=== PATIENT | female | born 1975 | race Caucasian/White ===

== ENCOUNTER 2019-11-05 08:52 | Outpatient (CLI) | payer BC, SELFPAY ==
--- NOTE | 2019-11-05 09:10 | XR_ITS ---
WS: [id number] LATERAL CERVICAL SPINE: 3 view. Lateral radiographs are performed in upright neutral, flexion and extension to the patient's toleranc e. HISTORY: Neck pain COMPARISON: None available. Mild straightening of the normal cervical lordosis. Small osteophytes extend from C3 to C7. Advanced degenerative disc disease at C6-7. There is slight retrolisthesis of C2 and C3. Normal alignment with flexion and 2 mm retrolisthesis during extension. XR/XR cervical spine fl/ex [id number] IMPRESSION: 1. Multilevel mild to moderate spondylosis. Most significant at C6-7. 2. Minimal instability at C2 and C3.
== END 2019-11-05 08:53 | disposition home or self-care (01) ==
LOC: RADWPI 08:57
PROVIDERS: Family Provider Nurse Practitioner Family; PCP Nurse Practitioner Family; Visit Provider Licensed Practical Nurse
DX: M50.020 Cervical disc disorder with myelopathy, mid-cervical region, unspecified level (principal); M47.892 Other spondylosis, cervical region; M53.2X2 Spinal instabilities, cervical region
CPT/HCPCS: 72040

== ENCOUNTER → 2019-11-07 08:39 | Outpatient (BNVA) | payer BC, SELFPAY | PROVIDERS: Family Provider Nurse Practitioner Family; PCP Nurse Practitioner Family; Referring Provider Licensed Practical Nurse; Visit Provider Anesthesiology Pain Medicine | DX: M54.12 Radiculopathy, cervical region (principal); M47.812 Spondylosis without myelopathy or radiculopathy, cervical region; M62.838 Other muscle spasm; F17.210 Nicotine dependence, cigarettes, uncomplicated | CPT/HCPCS: 99203; 99999 ==

== ENCOUNTER → 2020-01-08 09:56 | Outpatient (BNVA) | payer BC, SELFPAY | PROVIDERS: Family Provider Nurse Practitioner Family; PCP Nurse Practitioner Family; Referring Provider Family Medicine; Visit Provider Podiatrist Foot & Ankle Surgery | DX: S92.302A Fracture of unspecified metatarsal bone(s), left foot, initial encounter for closed fracture (principal); S92.335A Nondisplaced fracture of third metatarsal bone, left foot, initial encounter for closed fracture; S92.309A Fracture of unspecified metatarsal bone(s), unspecified foot, initial encounter for closed fracture | CPT/HCPCS: 73630 ==

== ENCOUNTER 2020-01-08 14:28 | Outpatient (CLI) | payer BC, SELFPAY | END 2020-01-08 14:29 | disposition home or self-care (01) | LOC: SPT 14:28 | PROVIDERS: Family Provider Nurse Practitioner Family; PCP Nurse Practitioner Family; Visit Provider Podiatrist Foot & Ankle Surgery | DX: Z46.89 Encounter for fitting and adjustment of other specified devices (principal); S92.335D Nondisplaced fracture of third metatarsal bone, left foot, subsequent encounter for fracture with routine healing; X58.XXXD Exposure to other specified factors, subsequent encounter | CPT/HCPCS: L4361 ==

== ENCOUNTER → 2020-01-30 15:00 | Outpatient (BNVA) | payer BC, SELFPAY | PROVIDERS: Family Provider Nurse Practitioner Family; PCP Nurse Practitioner Family; Visit Provider Podiatrist Foot & Ankle Surgery | DX: S92.302A Fracture of unspecified metatarsal bone(s), left foot, initial encounter for closed fracture (principal); X58.XXXA Exposure to other specified factors, initial encounter; M77.32 Calcaneal spur, left foot | CPT/HCPCS: 73630 ==

== ENCOUNTER 2020-09-12 10:15 | Outpatient (CLI) | payer BC, SELFPAY ==
[2020-09-12] MEDS: iohexol 300 mg/mL 50 mL Btl PO (11:05)
--- NOTE | 2020-09-12 11:30 | CT_ITS ---
WS: [id number] CT ABDOMEN PELVIS TECHNIQUE: Contrast-enhanced CT of the abdomen and pelvis with coronal and sagittal reformatted image s. CLINICAL INFORMATION: K62.5 - Hemorrhage of anus and rectum COMPARISON: CT 7 3018 DLP: 1126.[address] scans at [facility] use at least one of these dose optimization techniques: automat ed exposure control; mA and/or kV adjustment per patient size (includes targeted exams where dose is matched to clinical indication); or iterative reconstruction. FINDINGS: Sigmoid colon and rectum are normal in appearance. No free fluid in the pelvis. No signific ant diverticulosis. No evidence of small or large bowel obstruction. Incidental fat-containing umbili asim hernia. Diffuse fatty infiltration of the liver. Normal portal vein and splenic vein. Cholecystectomy clips. Small hepatic cyst. Small splenule. Normal spleen. Normal pancreas. Adrenal glands are normal. No hydronephrosis in eithe r kidney. Stable medullary nephrocalcinosis. Normal renal parenchymal enhancement. Tiny renal cysts. Normal caliber abdominal aorta. Prior tubal ligation. Left ovarian cyst measuring 2.1 CM. Intravaginal menstrual cup.Normal lumbar s pine. Lung bases are well aerated. CT/CT abdomen pelvis w con* [id number] IMPRESSION: 1. Diffuse fatty infiltration of the liver. Incidental hepatic cyst. 2. Prior cholecystectomy. 3. Visualized rectum and sigmoid colon are normal. 4. No evidence of small or large bowel obstruction. 5. No free fluid in the pelvis. 6. Small left ovarian cyst measuring 2.1 CM. 7. Tubal ligation clips. 8. Stable medullary calcinosis.
[2020-09-12] MEDS: iohexol 300 mg/mL 100 mL Btl IV (11:44)
== END 2020-09-12 10:16 | disposition home or self-care (01) ==
LOC: RADWPI 10:17
PROVIDERS: PCP Nurse Practitioner Family; Visit Provider Surgery
DX: K62.5 Hemorrhage of anus and rectum (principal); E83.59 Other disorders of calcium metabolism; N83.202 Unspecified ovarian cyst, left side; Z90.49 Acquired absence of other specified parts of digestive tract; K76.0 Fatty (change of) liver, not elsewhere classified
CPT/HCPCS: 74177; Q9967

== ENCOUNTER → 2021-10-19 09:32 | Outpatient (BNVA) | payer BC, SELFPAY | PROVIDERS: PCP Nurse Practitioner Family; Visit Provider Surgery | DX: K62.5 Hemorrhage of anus and rectum (principal) | CPT/HCPCS: 87635 ==

== ENCOUNTER 2022-05-04 08:49 | Day surgery (SDC) | payer BC, SELFPAY ==
[2022-05-03 11:56] VITALS: BMI 33.1
[2022-05-04] VITALS (10 sets, daily range): BP systolic 100–122; BP diastolic 55–82; PULSE 60–78; RESP 17–18; TEMP 36.1–36.6; O2SAT 93–97
[2022-05-04] MEDS: scopolamine 1.5 Patch 1 PATCH TRANSDERMA (09:25)
[2022-05-04] MEDS: acetaminophen 1,000 MG/100 ML PIGGYBACK 400 MG IV (09:25)
[2022-05-04] MEDS: sodium chloride 0.9% 1,000 ML 30 ML IV (09:25)
[2022-05-04 09:29] LABS: OR HCG Qualitative Urine Negative (Negative)
--- NOTE | 2022-05-04 09:48 | W.PM.OPSUD ---
Surgery/Procedure H&P Update DATE OF PROCEDURE: May 04, 2022 DATE H&P PERFORMED: 04/28/22 H&P UPDATE INFORMATION: I have reviewed H&P completed within last 30 days, I have examined patient prior to procedure and No changes to prior documentation PREOP DIAGNOSIS: Anal ulcer and bleeding per rectum PRIMARY INDICATION FOR PROCEDURE: The same PLANNED PROCEDURE: Operation Date: 05/04/22 10:40 Proposed Procedures p colonoscopy with polypectomy with exam under anesthesia 24202,89225,K62.6,K62.5,K64.9(Not Applicable) - Danis Burkett MD s Hemorroidectomy(Not Applicable) - Danis Burkett MD
--- NOTE | 2022-05-04 10:20 | ANES.PREANE2 ---
Pre-Anesthetic Assessment Height/Weight: Height 1.6 m Weight 84.822 kg Temp Pulse Resp BP Pulse Ox O2 Del Method 97 F L 78 18 122/82 96 05/04/22 09:14 05/04/22 09:14 05/04/22 09:14 05/04/22 09:14 05/04/22 09:14 05/04/22 09:14 Preop Diagnosis: Anal ulcer and bleeding per rectum Operation Date: 05/04/22 10:40 Proposed Procedures p colonoscopy with polypectomy with exam under anesthesia [id number],42440,K62.6,K62.5,K64.9(Not Applicable) - Danis Burkett MD s Hemorroidectomy(Not Applicable) - Danis Burkett MD Familial anesthetic complications: Hx of aspiration during perioperative period Hx of PONV Was Beta Mayuri taken within 24 hours: N/A Was Clonidine taken within 24 hours: N/A Last intake: Intake Last Liquid Date 05/03/22 Last Liquid Time 21:00 Last Solid Date 05/03/22 Last Solid Time 18:00 Social Tobacco and No alcohol Exam alert, oriented x 3, clear to auscultation bilaterally and regular rate & rhythm Airway Submandibular: within normal limits Cervical ROM: within normal limits Mallampati: Class II Dentition: full Pulmonary None reported CV/HEM None reported None reported Hepatic None reported GI Gastroesophageal Reflux Disease (Poorly controlled, no reflux on empty stomach) and Hiatal Hernia Metabolic Thyroid Disease Obesity [facility] [place] Cervical myelopathy Anesthetic Plan ASA status: 2 Anesthesia: Anesthesia Evaluation, General and MAC Other: We discussed risk and benefits of general anesthesia including PONV, sore throat (sometimes severe), corneal abrasion, positioning and peripheral nerve injuries, life threatening allergic reaction, post operative ICU admission requiring prolonged intubation, aspiration, stroke, heart attack, , and rare incidences of recall. I discussed with the patient risks, goals, and benefits of MAC and general anesthesia. We discussed spectrum of MAC anesthesia including conversion to general as well as possibility of recall of intraoperative stimuli including discomfort/pain. Patient consents to MAC or General pending further discussion with surgeon. Risk of > 500 ml blood loss (7ml/kg in children): No Medications/Allergies Home Medications Medication Instructions Recorded Confirmed Last Taken Type levothyroxine 175 mcg capsule 175 mcg PO DAILY 11/02/19 05/04/22 05/02/22 History omeprazole 20 mg capsule,delayed 40 mg PO DAILY 05/14/21 05/04/22 05/03/22 History release acetaminophen 500 mg tablet 500 mg PO Q6H PRN Pain 04/28/22 05/04/22 04/29/22 History (Tylenol Extra Strength) fluoxetine 20 mg capsule (Prozac) 20 mg PO DAILY 04/28/22 05/04/22 05/02/22 History ibuprofen 200 mg tablet 200 mg PO Q6H PRN Pain 04/28/22 05/04/22 05/03/22 History Allergies Allergy/AdvReac Type Severity Reaction Status Date / Time latex Allergy ALGY-Hives Verified 05/04/22 09:05 Sulfa (Sulfonamide AdvReac caused Verified 05/04/22 09:05 Antibiotics) reaction with eye sulfamethoxazole AdvReac caused Verified 05/04/22 09:05 [From Bactrim] reaction with eyes trimethoprim [From Bactrim] AdvReac caused Verified 05/04/22 09:05 reaction to eye Current Medications Generic Name Dose Route Start Last Admin Trade Name Freq PRN Reason Stop Dose Admin Sodium Chloride 1,000 mls @ 30 mls/hr 05/04/22 09:00 05/04/22 09:25 Sodium Chloride 0.9% IV 05/05/22 08:59 30 mls/hr .Q24H NEELAM Administration PFSH Anesthesia Medical History Cervical disc disorder with myelopathy of mid-cervical region GERD (gastroesophageal reflux disease) Opioid contract exists Smoker Stenosis of cervical spine with myelopathy Surgical History History of delivery History of cholecystectomy History of ear, nose, and throat (ENT) surgery History of thyroid surgery History of tubal ligation Family History Family/Other Asthma Social History Smoking and tobacco status: current every day smoker Alcohol intake: never Household members: children Marital status: service: No Current occupational status: employed Current occupation: [employer] History of recent travel: No Data Anesthesia Cardiac Studies: No Data to Display
[2022-05-04] MEDS: metoclopramide 5 mg/mL SDV 2 mL 10 MG IVP (10:27)
[2022-05-04] MEDS: famotidine 20 mg/2 mL INJ IVP (10:28)
[2022-05-04] MEDS: piperacillin-tazobactam 3.375 GM in sodium chloride 0.9% (plus) 50 ML IV (11:41)
--- NOTE | 2022-05-04 12:37 | PM.OP ---
Operative Report Date of procedure: May 04, 2022 Pre-op diagnosis: Preop Diagnosis Anal ulcer and bleeding per rectum Post-op diagnosis: other (Normal colonoscopy and right lower lateral external hemorrhoid) Procedure done: 1-Colonoscopy 2-Examination under anesthesia with hemorrhoidectomy Implants: Surgicel and Xeroform Specimens removed/disposition: Right lower lateral external hemorrhoid Surgeon: Danis Burkett MD Security Assurance Analyst: ski technician Clair chemical processing technician Kellie Circulating nurse Ida Anesthesia: MAC (stem lead former Carlos A) Estimated blood loss (mL): 5 Procedure: Patient was identified in the holding area, was taken to the OR placed first in supine position,IV antibiotics were given with induction time-out was done verifying the patient's name, date of , and procedure, all were in agreement. General anesthetic was administered by the anesthesia provider, patient was placed in left lateral position SCDs were on and functioning. Perianal examination showed right lower lateral external hemorrhoid with ulceration,otherwise no evidence of clinically palpable anal masses. Following that a digital rectal examination was done, the colonoscope was then introduced via the anus under direct visualization, all the way to the proximal to the cecum, a polyp was appreciated at the rectum, prep of the colon was appropriate, otherwise there were no polyps identified or masses or diverticular disease or strictures, the scope was then retrieved back, gas was deflated on the way out.Retroflex was done at the end showing showed no evidence of internal hemorrhoids, time to retrieve the scope from the cecum to the anus exceeded 6 minutes Prep and drape of the perineum was done under the usual sterile technique All pressure points were padded,Injection of 15 mL of Exparel around the hemorrhoidal tissue A lubricated self-retaining proctoscope was inserted, evidence of external hemorrhoid below the dentate line Started by introducing a wet sponge to prevent any residual colon prep from contaminating the site of the excision, and under direct visualization I started dissecting the right lower lateral hemorrhoid tissues after application of hemostats,dissection was carried by using the hand-held Voyant device, excised tissues were sent for permanent pathology, followed by running 2-0 chromic catgut. Hemostasis was achieved, irrigation was done, sponge was retrieved. Followed by irrigation.A piece of Surgicel /piece of Xeroform impregnated with lubricant jelly was placed in the anal canal, attached to 2-0 silk suture, to help retrieving it by the patient later on. ABDs were applied followed by surgical pants Patient was repositioned to supine position, counts of instruments,needles and sponges were completed at the end of the procedure. I was present for the whole entire procedure
[2022-05-04] MEDS: fentaNYL 50 mcg/mL INJ 2mL IVP (12:52)
--- NOTE | 2022-05-04 12:57 | SUR.PHASEI ---
patient brought into pacu awake, drowsy. patient has dressing in place dry and intact. patient states pain at 5. patient on room air with sats at 95%.
[2022-05-04] MEDS: HYDROcodone-acetaminophen 5-325 mg Tablet 1 TAB PO (13:37)
--- NOTE | 2022-05-04 15:40 | ANE.PACU2 ---
Inpatient post-anesthesia follow up: Airway intact: Yes Vital signs: Temperature 97.8 F Pulse Rate 68 Respiratory Rate 18 Blood Pressure 120/73 Pulse Oximetry 97 Oxygen Delivery Me thod Room Air Oxygen Flow Rate Fraction of Inspir ed Oxygen Hydration adequate: Yes Nausea and vomiting: No Pain level: 2 Mental status: Baseline
== END 2022-05-04 13:59 | disposition home or self-care (01) ==
PROVIDERS: PCP Nurse Practitioner Family; Visit Provider Surgery
PROC: 0DJD8ZZ Inspection of Lower Intestinal Tract, Via Natural or Artificial Opening Endoscopic (ICD-10-PCS; CPT 45378; principal; 2022-05-04 10:30)
PROC: (CPT 46250; 2022-05-04 10:30)
DX: K64.4 Residual hemorrhoidal skin tags (principal); K21.9 Gastro-esophageal reflux disease without esophagitis; F17.200 Nicotine dependence, unspecified, uncomplicated; Z88.2 Allergy status to sulfonamides
CPT/HCPCS: 46250; 81025; 84703; 88304; C9290; J2543; J2704; J2765; J3010; J3490; J7030

== ENCOUNTER 2024-08-07 11:58 | Outpatient (CLI) | payer BC, SELFPAY ==
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
== END 2024-08-07 11:59 | disposition home or self-care (01) ==
LOC: MOBLMAM 12:02
PROVIDERS: PCP Nurse Practitioner Family; Visit Provider Nurse Practitioner Family
DX: Z12.31 Encounter for screening mammogram for malignant neoplasm of breast (principal); R92.323 Mammographic fibroglandular density, bilateral breasts; R92.1 Mammographic calcification found on diagnostic imaging of breast
CPT/HCPCS: 77063; 77067